=== PATIENT | male | born 1945 | race Caucasian/White ===

== ENCOUNTER → 2016-05-26 | Outpatient (CLI) | payer MEDICARE, BC ==
[~2016-05-26] MED LIST: AMBIEN 10MG10 MG PO; BUSPAR 30MG30 MG/TAB PO; CARDIZEM120 MG PO; CEPHALEXIN500 M1 PO; CLONIDINE HCL0.3 MG PO; CLONIDINE0.3 MG PO; DIABETA 5MG5 MG/TAB PO; ELIQUIS 5MG PO; FLONASE NASAL S16 GM NS; FLORINEF ACETA0.1 MG PO; FORTAMET1000 MG PO; GLUCOPHAGE; GLUCOTROL10 MG PO; HALDOL .5M0.5 MG/TAB PO; JANUVIA 100MG100 MG PO; JANUVIA25 MG PO; KLONOPIN 0.5MG0.5 MG PO; LAMICTAL 25MG T25 MG PO; LISINOPRIL; LITHIUM 60600 MG/CAP PO; MULTAQ400 MG PO; NIACIN PO; NORCO 325 MG-51 TAB PO; OMEGA 31000 MG PO; PAMELOR 25MG25 MG PO; PAMELOR75 MG PO; PRIL40 PO; PRINIVIL5 MG PO; PYRIDIUM 100MG100 MG PO; RESTORIL 1515 MG/CAP PO; SENOKOT S 50 MG1 TAB PO; SEROQUEL; SEROQUEL XR50 MG PO; SINGULAIR 110 MG/TAB PO; TENEX1 MG PO; TOPAMAX 25MG25 M1 PO; VICODIN 5/5001 UDTAB PO; VITAMIN B-1000 MCG/T PO; VITAMIN B12100 MCG PO; VITAMIN C500 MG PO; VITAMIN D31000 I1 PO; VITAMIN D32000 IU PO; ZOLOFT 100MG100 MG PO; ZOLOFT PO
== END ==
LOC: BHSO 14:53
DX: F33.41 Major depressive disorder, recurrent, in partial remission (principal)

== ENCOUNTER → 2016-06-27 | Outpatient (CLI) | payer MEDICARE, BC | LOC: BHSO 15:22 | DX: F33.41 Major depressive disorder, recurrent, in partial remission (principal) ==

== ENCOUNTER → 2016-07-25 | Outpatient (CLI) | payer MEDICARE, BC | LOC: BHSO 13:37 | DX: F41.1 Generalized anxiety disorder (principal) ==

== ENCOUNTER → 2016-08-25 | Outpatient (CLI) | payer MEDICARE, BC | LOC: COL.RAD 10:45 | DX: G31.89 Other specified degenerative diseases of nervous system (principal); I67.82 Cerebral ischemia; M25.78 Osteophyte, vertebrae; R20.0 Anesthesia of skin ==

== ENCOUNTER → 2016-08-26 | Outpatient (CLI) | payer MEDICARE, BC | LOC: BHSO 15:16 | DX: F33.1 Major depressive disorder, recurrent, moderate (principal) ==

== ENCOUNTER → 2016-09-29 | Outpatient (CLI) | payer MEDICARE, BC | LOC: BHSO 15:19 | DX: F41.1 Generalized anxiety disorder (principal) ==

== ENCOUNTER → 2016-12-01 | Outpatient (CLI) | payer MEDICARE, BC | LOC: BHSO 15:12 | DX: F33.41 Major depressive disorder, recurrent, in partial remission (principal) ==

== ENCOUNTER → 2016-12-08 | Outpatient (CLI) | payer MEDICARE, BC | LOC: COL.RAD 07:11 | DX: N40.0 Benign prostatic hyperplasia without lower urinary tract symptoms (principal); Z90.5 Acquired absence of kidney ==

== ENCOUNTER 2017-01-29 09:53 | Day surgery (SDC) | payer MEDICARE, BC ==
[2017-01-29] VITALS (7 sets, daily range): BP systolic 124–144; BP diastolic 84–98; PULSE 63–69; TEMP 98.4
[~2017-01-29] VITALS: Ht 193.1 cm; Wt 111.0 kg
[~2017-01-29 09:53] MED LIST changes: -AMBIEN 10MG10 MG PO; -BUSPAR 30MG30 MG/TAB PO; -CARDIZEM120 MG PO; -CEPHALEXIN500 M1 PO; -FLONASE NASAL S16 GM NS; -KLONOPIN 0.5MG0.5 MG PO; -PRIL40 PO; -RESTORIL 1515 MG/CAP PO
[2017-01-29] MEDS ORDERED: FLONASE NASAL S16 GM NS (10:16)
[2017-01-29] MEDS ORDERED: KLONOPIN 0.5MG0.5 MG PO (10:34)
[2017-01-29] MEDS ORDERED: BUSPAR 30MG30 MG/TAB PO (10:35)
[2017-01-29] MEDS ORDERED: AMBIEN 10MG10 MG PO (10:36)
[2017-01-29] MEDS ORDERED: RESTORIL 1515 MG/CAP PO (10:40)
[2017-01-29] MEDS ORDERED: PRIL40 PO (10:41)
[2017-01-29] MEDS ORDERED: CEPHALEXIN500 M1 PO (13:12)
[2017-01-29] MEDS ORDERED: CARDIZEM120 MG PO (13:13)
== END 2017-01-29 14:12 | disposition home or self-care (01) ==
LOC: COL.CAR 09:53
DX: I48.0 Paroxysmal atrial fibrillation (principal); I42.9 Cardiomyopathy, unspecified; I10 Essential (primary) hypertension; I05.9 Rheumatic mitral valve disease, unspecified; F41.9 Anxiety disorder, unspecified; F32.9 Major depressive disorder, single episode, unspecified; E11.9 Type 2 diabetes mellitus without complications; K21.9 Gastro-esophageal reflux disease without esophagitis; G43.909 Migraine, unspecified, not intractable, without status migrainosus; M19.90 Unspecified osteoarthritis, unspecified site; G47.33 Obstructive sleep apnea (adult) (pediatric); Z90.5 Acquired absence of kidney; Z79.84 Long term (current) use of oral hypoglycemic drugs; Z83.3 Family history of diabetes mellitus; Z79.01 Long term (current) use of anticoagulants; Z85.528 Personal history of other malignant neoplasm of kidney; Z86.010 Personal history of colon polyps; Z82.49 Family history of ischemic heart disease and other diseases of the circulatory system; Z82.3 Family history of stroke
CPT/HCPCS: J0690; J2250; J3010; J7040

== ENCOUNTER → 2017-02-12 | Outpatient (CLI) | payer MEDICARE, BC ==
[~2017-02-12] MED LIST changes: +AMBIEN 10MG10 MG PO; +BUSPAR 30MG30 MG/TAB PO; +CARDIZEM120 MG PO; +CEPHALEXIN500 M1 PO; +FLONASE NASAL S16 GM NS; +KLONOPIN 0.5MG0.5 MG PO; +PRIL40 PO; +RESTORIL 1515 MG/CAP PO
== END ==
LOC: COL.RAD 08:14
DX: M48.07 Spinal stenosis, lumbosacral region (principal); M47.817 Spondylosis without myelopathy or radiculopathy, lumbosacral region; M51.27 Other intervertebral disc displacement, lumbosacral region; M79.662 Pain in left lower leg

== ENCOUNTER → 2017-02-25 | Outpatient (CLI) | payer MEDICARE, BC | LOC: BHSO 14:56 | DX: F33.41 Major depressive disorder, recurrent, in partial remission (principal) ==